=== PATIENT | male | born 1965 | race African-American/Black ===

== ENCOUNTER 2022-04-06 13:21 | Emergency (ER) | payer OTHER, SELFPAY ==
--- NOTE | ~2022-04-06 | CT_ITS ---
[facility] DATE: 04/06/2022 16:18 INDICATION: Right flank pain. TECHNIQUE: Computed tomography (CT) of the chest, abdomen, pelvis, thoracic spine, and lumbar spine w as performed with 100 mL Omnipaque 350 intravenous contrast. Automated exposure control and iterative reconstruction technique were employed. The dose-length product was 1780.31 mGy-cm. COMPARISON: None FINDINGS: CHEST CT: The lungs demonstrate mild atelectasis. No pleural effusion. The heart size is normal. No pericardial effusion. ABDOMEN/PELVIS CT: There is a 4 mm cyst in the liver. The gallbladder, spleen, pancreas, and adrenal glands are normal. There is cortical thinning of the kidneys. There is a left inguinal hernia containing fat. There are no dilated loops of bowel. The appendix is normal. There are no pathologically enlarged lymph nodes. There is no free intraperitoneal fluid. THORACIC SPINE CT: There is 4 degrees levocurvature of upper thoracic spine. There is mild chronic anterior wedging of T 6 vertebral body. Intervertebral disc heights are normal. There are bridging endplate osteophytes at multiple levels in the spine, consistent with diffuse idiopathic skeletal hyperostosis (DISH). There is multilevel mild to moderate facet joint osteoarthritis. There is multilevel mild neural foraminal stenosis. On the right, there is moderate neural foraminal stenosis at T2-T3 and T8-T9. On the left, there is moderate neural foraminal stenosis at T9-T9 and T9-T10. There is no central canal stenosis. LUMBAR SPINE CT: Bone alignment is normal. Vertebral body heights and intervertebral disc heights are normal. There is ankylosis of the sacroiliac joints. There is a benign bone island in left ilium. The following disc levels are specifically discussed: L1-L2: The disc does not extend beyond the endplate margin. There is mild bilateral facet joint osteo arthritis. There is no neural foraminal stenosis. There is no central canal stenosis. L2-L3: The disc does not extend beyond the endplate margin. There is severe bilateral facet joint ost eoarthritis. There is mild right neural foraminal stenosis. There is no central canal stenosis. L3-L4: The disc does not extend beyond the endplate margin. There is severe bilateral facet joint ost eoarthritis. There is no neural foraminal stenosis. There is no central canal stenosis. L4-L5: The disc is bulging. There is severe bilateral facet joint osteoarthritis. There is moderate b ilateral neural foraminal stenosis. There is mild central canal stenosis. L5-S1: The disc is bulging. There is severe bilateral facet joint osteoarthritis. There is mild bilat eral neural foraminal stenosis. There is mild central canal stenosis. IMPRESSION: 1. Left inguinal hernia containing fat. 2. Moderate thoracic and lumbar spondylosis. 3. DISH. Reviewed, dictated and finalized at location A.
[2022-04-06 13:31] VITALS: BP 134/81; PULSE 82; RESP 14; TEMP 36.6; O2SAT 99
[2022-04-06 14:56] LABS: Appearance Urine Clear (Clear); Bilirubin Urine Negative (Negative); Blood Urine Negative (Negative); Color Urine Yellow (Yellow); Glucose Urine UA Negative (Negative); Ketones Urine Trace mg/dL (Negative); Leukocyte Esterase Ur Trace LEU/UL (Negative); Nitrate Urine Negative (Negative); Protein Urine Negative (Negative); Specific Grav Ur 1.025 (1.001-1.035); Urobilinogen Urine 0.2 mg/dL (<2.0)
[2022-04-06 15:02] LABS: Mucus Urine Rare /lpf; RBC Urine 0-2 /hpf (0-2); Squamous Epithelial Cell Urine Occasional /hpf (Few)
[2022-04-06 15:05] LABS: Add Urine Microscopic? YES
--- NOTE | 2022-04-06 15:18 | ED.BACK ---
HPI - Back Pain/Injury General Chief Complaint: Back Pain/Injury Stated Complaint: Request Second Opinion, Side Pain Time Seen by Provider: 04/06/22 14:07 History of Present Illness HPI Narrative: 56-year-old male history of diabetes presents to the emergency room complaining of right flank pain. Patient states he has been experiencing flank pain for over 1 year. Admits to being evaluated at 3 different emergency rooms and his primary care physician's office prior to today. States that he has been told that there are no problems with his kidneys and that this is mostly muscle skeletal. States the pain is worse when he attempts to lay down flat on his back and when he moves around. Patient states when he rotates to the left he can feel the pulling sensation in his back. Pain is alleviated with Tylenol. Denies any hematuria or difficulty urinating. Denies urinary retention or decreased urinary output. Denies any injury or trauma to his right flank. Patient also denies history of rashes in the right flank area Related Data Allergies Allergy/AdvReac Type Severity Reaction Status Date / Time Penicillins Allergy Anaphylaxis Verified 04/06/22 13:36 Review of Systems Review of Systems: CONSTITUTIONAL: Denies fever, chills, or sweats. EYES: Denies visual changes, redness, or discharge. ENT: Denies rhinorrhea, congestion, sore throat, or otalgia. CARDIOVASCULAR: Denies chest pain, palpitations, or edema. RESPIRATORY: Denies cough or dyspnea. GASTROINTESTINAL: Reports right flank pain GENITOURINARY: Denies dysuria or hematuria. SKIN: Denies rash or itching. MUSCULOSKELETAL: Denies back pain, joint pain, or myalgia. NEUROLOGIC: Denies headache, numbness, dizziness, or weakness. PSYCHIATRIC: Denies anxiety or depression. Exam Narrative: GENERAL: Well-appearing, well-nourished, no physical limitations, and in no acute distress. HEAD: Normocephalic, atraumatic. EYES: Conjunctivae normal, PERRLA and EOMI. CHEST: Clear to auscultation. No respiratory distress. No wheezes rales or rhonchi. No tenderness. HEART: Regular rate and rhythm. No murmur heard. Normal peripheral pulses. ABDOMEN: Soft, nontender, nondistended, normal active bowel sounds. BACK: No CVA tenderness; tenderness over the right posterior lateral rib cage. No signs of flail chest or ecchymosis. No midline lumbar thoracic tenderness. Pain elicited with a left trunk rotation EXTREMITIES: Normal range of motion. No edema. No clubbing or cyanosis SKIN: Warm, dry, no rash. No noted wounds NEURO: No focal deficits. Alert and oriented x3. MAEW. CN's II-XI intact bilaterally, normal gait PSYCH: Cooperative. Normal mood and affect. Course Vital Signs Vital signs: Vital Signs Temperature 36.6 C 04/06/22 13:31 Pulse Rate 82 04/06/22 13:31 Respiratory Rate 14 04/06/22 13:31 Blood Pressure 134/81 04/06/22 13:31 Pulse Oximetry 99 04/06/22 13:31 Temperature 36.6 C 04/06/22 13:31 Pulse Rate 82 04/06/22 13:31 Respiratory Rate 14 04/06/22 13:31 Blood Pressure 134/81 04/06/22 13:31 Pulse Oximetry 99 04/06/22 13:31 MDM - Back Pain/Injury Lab Data Result diagrams: 04/06/22 15:19 04/06/22 15:19 Labs: Lab Results 04/06/22 04/06/22 04/06/22 Range/Units 14:44 15:19 15:19 WBC 8.3 (4.5-10.0) K/mm3 RBC 4.38 L (4.6-6.20) M/mm3 Hgb 13.9 L (14.0-18.0) g/dL Hct 41.7 L (42.0-52.0) % MCV 95.2 (80-100) fl MCH 31.7 (26-34) pg MCHC 33.3 (32-36) g/dl RDW 12.8 (11.5-14.5) % Plt Count 258 (150-375) k/mm3 MPV 10.0 (7.4-10.4) fl Immature Gran % (Auto) 0.4 (0-0.5) % Neut % (Auto) 67.2 (45.5-73.1) % Lymph % (Auto) 21.9 (18.3-44.2) % [place] % (Auto) 8.4 (2.6-8.5) % Eos % (Auto) 1.7 (0-4.4) % Baso % (Auto) 0.4 (0.2-1.2) % Lymph # (Auto) 1.81 (0.9-3.2) K/mm3 [place] # (Auto) 0.7 H (0.1-0.6) K/mm3 Eos # (Auto) 0.1 (0-0.3) K/mm3 Baso # (
[2022-04-06 15:32] LABS: Basophils Percent Auto 0.4 % (0.2-1.2); Eosinophils Absolute Auto 0.1 K/mm3 (0-0.3); Eosinophils Percent Auto 1.7 % (0-4.4); Hematocrit 41.7 % (42.0-52.0); Hemoglobin 13.9 g/dL (14.0-18.0); Immature Granulocyte Absolute 0.03 K/mm3 (0.00-0.031); Immature Granulocyte Percent A 0.4 % (0-0.5); Lymphocytes Absolute Auto 1.81 K/mm3 (0.9-3.2); Lymphocytes Percent Auto 21.9 % (18.3-44.2); Mean Corpuscular HGB Conc 33.3 g/dl (32-36); Mean Corpuscular Hemoglobin 31.7 pg (26-34); Mean Corpuscular Volume 95.2 fl (80-100); Monocytes Absolute Auto 0.7 K/mm3 (0.1-0.6); Monocytes Percent Auto 8.4 % (2.6-8.5); Neutrophils Absolute Auto 5.6 K/mm3 (1.3-6.7); Neutrophils Percent Auto 67.2 % (45.5-73.1); Platelet Count Result 258 k/mm3 (150-375); Red Blood Count 4.38 M/mm3 (4.6-6.20); Red Cell Distribution Width 12.8 % (11.5-14.5); White Blood Count 8.3 K/mm3 (4.5-10.0)
[2022-04-06 15:50] LABS: Alanine Aminotransferase 18 U/L (6-50); Albumin Level 4.2 g/dL (3.5-5.1); Alkaline Phosphatase 87 U/L (38-126); Anion Gap 8 mmol/L (8-16); Aspartate Amino Transferase 24 U/L (17-59); Bilirubin,Total 0.5 mg/dL (0.2-1.3); Blood Urea Nitrogen 15 mg/dL (9-20); CRP 1.1 mg/dL (<1.0); Calcium 9.1 mg/dL (8.4-10.2); Carbon Dioxide 28 mmol/L (22-30); Chloride 103 mmol/L (98-107); Estimated CRCL calculation 88 ml/min; Estimated Glomerular Filt Rate > 60; Glucose 105 mg/dL (65-110); Lipase 59 U/L (23-300); Potassium 3.8 mmol/L (3.4-5.0); Sodium 139 mmol/L (137-145)
--- NOTE | 2022-04-06 16:02 | PC.NURSE ---
Patient off unit to radiology.
[2022-04-06 16:18] LABS: Erythrocyte Sedimentation Rate 16 mm/hr (0-20)
== END 2022-04-06 17:24 | disposition home or self-care (01) ==
PROVIDERS: Emergency Provider Nurse Practitioner Family
DX: M48.19 Ankylosing hyperostosis [Forestier], multiple sites in spine (principal); K40.90 Unilateral inguinal hernia, without obstruction or gangrene, not specified as recurrent; M47.816 Spondylosis without myelopathy or radiculopathy, lumbar region; M47.814 Spondylosis without myelopathy or radiculopathy, thoracic region
CPT/HCPCS: 36415; 71260; 72129; 72132; 74177; 80053; 81001; 83690; 85025; 85652; 86140; 99284; Q9967

== ENCOUNTER 2022-08-18 09:27 | Emergency (ER) | payer OTHER, SELFPAY ==
[2022-08-18 09:56] VITALS: BP 157/68; PULSE 94; RESP 20; TEMP 36.2; O2SAT 100
--- NOTE | 2022-08-18 11:57 | PC.NURSE ---
Patient DNAP at [id number]. Will attempt to call patient one more time before removing from the board
== END 2022-08-18 13:50 | disposition left against medical advice (07) ==
DX: R35.0 Frequency of micturition (principal)
CPT/HCPCS: 99199